=== PATIENT | female | born 2000 | race African-American/Black ===

== ENCOUNTER 2023-10-31 22:16 | Inpatient (IN) | payer OTHER, SELFPAY ==
[2023-10-31 16:20] VITALS: BP 148/85; BMI 17.4
[2023-10-31 17:00] VITALS: BP 135/80
[2023-10-31 17:10] LABS: Urine Albumin Trace (Neg - Trace); Urine Bilirubin Negative (Negative); Urine Character Clear (Clear); Urine Color Yellow; Urine Glucose Negative (Negative); Urine Ketone Negative (Negative); Urine Leukocyte Negative (Negative); Urine Nitrite Positive (Negative); Urine Occult Blood Negative (Negative); Urine Specific Gravity 1.015 (<1.030); Urine Urobilinogen Negative (Neg - 1+)
[2023-10-31 17:12] LABS: COVID-19 Antigen Negative (Negative)
[2023-10-31 17:14] LABS: Chloride 105 mmol/L (98-107); Potassium 3.6 mmol/L (3.5-5.1); Sodium 139 mmol/L (135-145)
[2023-10-31 17:15] LABS: ALT (SGPT) 12 U/L (0-35); AST (SGOT) 17 U/L (14-36); Acetaminophen < 10 ug/ml (10-30); Albumin 4.5 g/dl (3.5-5.0); Alkaline Phosphatase 50 U/L (38-126); Blood Urea Nitrogen 12 mg/dl (7-17); Calcium 9.1 mg/dl (8.4-10.2); Carbon Dioxide 14 mmol/L (22-30); Creatine Phosphokinase 27 U/L (30-135); Estimated Creatinine Clearance 93 ml/min; Glucose 147 mg/dl (70-99); Lipase 61 U/L (23-300); Magnesium 1.5 mg/dl (1.6-2.3); Total Bilirubin 0.7 mg/dl (0.2-1.3); Total Protein 7.6 g/dl (6.3-8.2); eGFR > 60.00
[2023-10-31 17:17] LABS: Alcohol None Detected
[2023-10-31 17:20] LABS: Amphetamines Negative (Negative); Barbiturates Negative (Negative); Benzodiazepines Negative (Negative); Buprenorphine Negative (Negative); Cocaine Negative (Negative); Marijuana Negative (Negative); Methadone Negative (Negative); Methamphetamines Negative (Negative); Opiates Negative (Negative); Phencyclidine Negative (Negative); Tricyclic Antidepressants Negative (Negative)
[2023-10-31 17:22] LABS: HCG, Serum Qualitative Screen Negative
--- NOTE | 2023-10-31 17:31 | ED.GENMED ---
History of Present Illness
General
Chief Complaint: Change in Mental Status
Source: patient, family and ambulance crew
Exam Limitations: clinical condition
Time Seen by Provider: 10/31/23 16:32
Nursing documentation reviewed up to this point in time: agreed with
History of Present Illness
History of Present Illness:
22-year-old female with no apparent past medical history presents to the emergency room via EMS from home where she lives with her mom and brother; initially unaccompanied and later joined by her brother who helps provide some collateral history.
She presents to the ER today for evaluation of change in mental status. Patient is limited as a historian and is clearly confused�she is tangential, not appropriately answering questions. Her brother says that she was in her normal state of health
yesterday. This morning he says that he heard her moving about the house and everything seemed to be normal but he did not actually see her until the afternoon when he returned from picking his mother up from a dialysis center. They found her
sitting on the couch acutely confused. He says that she was pretending to talk on the phone, not answering questions appropriately, seemed anxious and jittery. Per EMS on their arrival patient very confused, denied any drug use, had a red bull can
near her but no other drugs or alcohol in the area. She was found to be very tachycardic and was given IV fluids on the way to the hospital.
Review of Systems
Review of Systems
Unable to obtain full review of systems at this time due to: other (Confusion)
All Other Systems: Not applicable
Phy Exam
Physical Exam
Physical Exam:
General: Awake, alert, oriented to person and place; anxious and confused�speaking very softly, not answering questions appropriately and tangential when she does answer questions
Head: Normocephalic, atraumatic
Eyes: Conjunctiva normal, EOMI, pupils dilated and briskly reactive to light bilaterally
Throat: Airway intact, mucous membranes very dry, tongue atraumatic
Neck: Trachea midline, supple without meningismus
Lungs: Clear to auscultation bilaterally, no wheezing, rales, rhonchi
Heart: Tachycardia with regular rhythm, no murmurs, gallops, or rubs
Abd: Soft, non distended, nontender
Neuro: Cranial nerves grossly intact, speech fluid but soft and confused�no dysarthria or aphasia; motor and sensory function intact in all extremities
Skin: no rash or signs of trauma
Extremities: No edema in extremities, equal pulses in all extremities
Scores
Heart Failure Risk
Heart Failure Risk Score: Not Applicable
Heart Score for Chest Pain Patients
STEMI patient?: Not applicable
Withdrawal Assessment of Alcohol
Withdrawal Assessment Completed?: Not applicable
Course
Orders/Labs/Results
Orders:
Orders
10/31/23 16:25
Electrocardiogram (*1) Urgent
Reason for Study: Tachycardia
10/31/23 16:26
EKG- Treatment ONCE
10/31/23 16:30
Acetaminophen Urgent
Alcohol Urgent
CPK [Creatine Phosphokinase] Urgent
Complete Blood Count/With Diff Urgent
Comprehensive Metabolic Panel Urgent
HCG, Serum Qualitative Screen Urgent
Lipase Urgent
Magnesium Urgent
TSH Reflex To Free T4 Urgent
Comment: ADD ON
10/31/23 16:32
Test Result ONCE
10/31/23 16:33
CT Head W/o Iv Contrast Urgent
Comment:
Reason For Exam: confused
10/31/23 16:43
0.9% Sodium Chloride 1000 ml [Nss] 1,000 ml IV BOLUS
10/31/23 16:48
COVID-19 Antigen Urgent
Source: Nasal Swab
Drug Screen, Urine [Urine Drug Abuse Screen] Urgent
Date Specimen was Collected: 10/31/23
Time Specimen was Collected: 16:45
Urinalysis Reflex To Culture Urgent
Date Specimen was Collected: 10/31/23
Time Specimen was Collected: 16:45
Urine Microscopic Reflex Cult Urgent
Urine Culture Urgent
ANNIKA Source: U
Specimen Description:
Date Specimen was Collected: 10/31/23
Time Specimen was Collected: 16:45
10/31/23 16:49
Add On- LAB Urgent
Tests Added?: tsh reflex
10/31/23 17:30
Ethylene Glycol [S] Urgent
Methyl Alcohol (Methanol) [S] Urgent
Salicylate Urgent
10/31/23 17:54
B12 [Vitamin B12] Urgent
Ferritin Urgent
Folate Urgent
Iron Urgent
Lactate Level [Lactic Acid] Urgent
Total Iron Binding Urgent
Venous Blood Gas Urgent
%Oxygen/Room Air: 95
10/31/23 19:01
Midazolam HCl [Versed] 1 mg IV NOW STA
10/31/23 19:40
CSF Cell Count Routine
Date Specimen was Collected: 10/31/23
Time Specimen was Collected: 19:22
CSF Cell Count Urgent
Date Specimen was Collected: 10/31/23
Time Specimen was Collected: 19:22
CSF Tube Number: 1
Comment: Tube #1
Spinal Fluid Glucose Urgent
Date Specimen was Collected: 10/31/23
Time Specimen was Collected: 19:22
Spinal Fluid Protein Urgent
Date Specimen was Collected: 10/31/23
Time Specimen was Collected: 19:22
CSF Culture with Gram Stain Urgent
ANNIKA Source: [facility]
Specimen Description:
Date Specimen was Collected: 10/31/23
Time Specimen was Collected: 19:22
Meningitis Panel, CSF by PCR Urgent
ANNIKA Source: [facility]
Specimen Description:
10/31/23 20:24
Basic Metabolic Panel Urgent
Lactate Level [Lactic Acid] Urgent
10/31/23 20:53
NEUROLOGY CONSULT Urgent
Consulting Provider: Trevor Tiwari
Was physician already notified: Yes
Abnormal Lab Results
10/31/23 10/31/23 10/31/23
16:30 16:48 17:30
Hgb 8.1 L g/dL
(12.0-16.0)
Hct 28.0 L %
(37.0-47.0)
MCV 61.9 L fL
(81.0-99.0)
MCH 17.9 L pg
(27.0-31.0)
MCHC 28.9 L g/dL
(33.0-37.0)
RDW 17.4 H %
(11.5-14.5)
Plt Count 460 H 10^3/uL
(130-400)
Absolute Neuts (auto) 6.7 H 10^3/uL
(1.4-6.5)
Absolute Lymphs (auto) 0.7 L 10^3/uL
(1.2-3.4)
Neutrophils % 84.4 H %
(42.2-75.2)
Lymphocytes % 8.9 L %
(20.5-51.1)
VBG pCO2
VBG pO2
VBG HCO3
Chloride
Carbon Dioxide 14 L* mmol/L
(22-30)
Creatinine
Glucose 147 H mg/dl
(70-99)
Lactic Acid
Magnesium 1.5 L mg/dl
(1.6-2.3)
Iron
% Saturation
Ferritin
Creatine Kinase 27 L U/L
(30-135)
Urine Nitrite (Reflex) Positive A
(Negative)
Urine Bacteria (Reflex) Many A
(Negative)
Salicylates < 1.0 L mg/dl
(2.0-20.0)
Acetaminophen < 10 L ug/ml
(10-30)
10/31/23 10/31/23
17:54 20:24
Hgb
Hct
MCV
MCH
MCHC
RDW
Plt Count
Absolute Neuts (auto)
Absolute Lymphs (auto)
Neutrophils %
Lymphocytes %
VBG pCO2 33 L mmHg
(35-48)
VBG pO2 126 H mmHg
(30-50)
VBG HCO3 18.2 L mmol/L
(22-27)
Chloride 109 H mmol/L
(98-107)
Carbon Dioxide 15 L mmol/L
(22-30)
Creatinine 0.5 L mg/dL
(0.6-1.0)
Glucose
Lactic Acid 2.2 H mmol/L
(0.7-2.0)
Magnesium
Iron 25 L ug/dl
(37-170)
% Saturation 6 L %
(20-50)
Ferritin 4.2 L ng/ml
(6.24-137)
Creatine Kinase
Urine Nitrite (Reflex)
Urine Bacteria (Reflex)
Salicylates
Acetaminophen
10/31/23 16:30
10/31/23 20:24
Vital Signs
Initial and Last Documented VS:
Initial Vital Signs
Temp Pulse Resp BP Pulse Ox
36.9 C 153 27 148/85 98
10/31/23 16:20 10/31/23 16:20 10/31/23 16:20 10/31/23 16:20 10/31/23 16:20
Last Documented Vital Signs
Temp Pulse Resp BP Pulse Ox
36.9 C 117 15 138/88 100
10/31/23 16:20 10/31/23 20:45 10/31/23 20:45 10/31/23 20:36 10/31/23 20:36
Procedures
Lumbar Puncture
Indication for procedure:: encephalopathy
Procedure completed by: Carroll Garcia MD
Consent form signed: Yes
Anesthesia/sedation: 1% Lidocaine
Preparation: cleaned with Betadine
Position: decubitis
Needle Size: 20 gauge
Needle Type: Lumbar Needle
Number of attempts: 1
Dressing applied to puncture site: bandaid
Complications: none
MDM/Problems Addressed
Differential Diagnosis Includes:
Drug/alcohol intoxication, traumatic head injury/intracranial hemorrhage, meningitis/encephalitis, seizure with postictal period, psychosis
MDM/Problems Addressed:
22-year-old female presents from home for evaluation of change in mental status�found acutely confused this afternoon; last visibly seen normal yesterday although seem to be moving about the house relatively normally according to her brother as
recently as this morning. No reported or apparent drug or alcohol use. No apparent trauma. Tachycardic and tachypneic otherwise normal vitals. Physical exam as above. Accu-Chek normal. Place an IV check labs including a CBC and a CMP, tox
screen, hCG, thyroid studies, urinalysis. EKG shows sinus tachycardia. Will check CT head. IV fluids. Will reassess after the above.
Initial labs reviewed: CBC shows anemia of unclear chronicity�microcytic suggest iron deficiency. CMP shows anion gap metabolic acidosis with a bicarb of 14 anion gap of 20, glucose 147. Added lactate, toxic alcohols, salicylate levels, VBG. Her
alcohol level is negative, UDS is negative. CT head is pending. Continue to monitor.
CT head negative. Patient's VBG shows normal pH. Lactate was slightly elevated 2.2. Clinical reassessment patient still confused family says not at her baseline�she still is giving bizarre responses to questions. Will proceed with lumbar
puncture to rule out [employer] infection. Consented via telephone with patient's mother.
LP performed as documented procedure note. Fluid clear appearing CSF studies sent. Continue to monitor.
CSF cell counts returned, no elevation in WBCs, clear and colorless. Nothing to suggest meningitis although cultures pending. Her urinalysis did have some bacteria but no significant pyuria, multiple squamous cells which suggest contamination; she
has no fever or leukocytosis and denies urinary symptoms, low suspicion that UTI accounts for her presentation. Her mental status has improved slightly but she is still not consistently answering questions appropriately, cannot recall the events of
the day at all. Family agrees that she is still not at her baseline. Case discussed with neurology for consultation. Will admit for continued monitoring and workup. Possibly seizure with prolonged postictal period considering metabolic acidosis
and elevated lactate on arrival. Case discussed with hospitalist for admission.
*Radiology
Radiology exam reviewed: radiology read reviewed
*Pulse Oximetry
Patient hypoxic: no
*EKG
Interpreted by ED Provider?: Yes
Heart Rate: 149
Rate: tachycardiac
Rhythm: sinus tachycardia
[place]: normal axis
Interval: normal interval
QRS Pattern: normal QRS
Ischemia: non-specific ST changes
*Critical Care Note
Total Time (30-74mins, 75-104mins- exclusive of procedures): Not Applicable
Data Reviewed
Source: patient, family and ambulance crew
Patient Management
Discussion with other providers: Hospitalist (Discussed with hospitalist) and [employer] Access Database Developer (Discussed with neurology)
Escalation/DeEscalation of care consider admission/obs:
Admission indicated
ED Attending Note
-
Portions of this chart may have been created with voice recognition software.� Occasional wrong word or��sound alike� substitutions may have occurred due to the inherent limitations of voice recognition software.
Discharge Plan
Departure
Patient Disposition: Admit
Date of Disposition: 10/31/23
Time of Disposition: 20:58
Admit to doctor: Bunny
Presentation/result/management discussed w/ accepting MD/DO: Hospitalist
Discharge Problem:
Encephalopathy
Referrals:
Bay Resendiz DO [Family Provider] -
Interventions
Interventions:
*General Assessment Last Done: 10/31/23 16:34
*Neglect/Abuse Screening Last Done: 10/31/23 16:34
*ED COVID-19 Vaccine History Last Done: 10/31/23 16:34
ED- Pulmonary Assessment Last Done: 10/31/23 16:57
ED-Psychological Assessment Last Done: 10/31/23 16:57
ED- Neurological Assessment Last Done: 10/31/23 16:57
ED- Cardiac Assessment Last Done: 10/31/23 16:57
Discharge Date and Time
Print Language: WOLOF
[2023-10-31 17:33] LABS: Urine Squamous Cell 16-20 /LPF (Few)
[2023-10-31 17:34] LABS: Urine Bacteria Many (Negative); Urine Red Blood Cell 0-2 /HPF (0-2)
[2023-10-31 17:40] LABS: Hemoglobin 8.1 g/dL (12.0-16.0); Mean Corp Hgb Conc. 28.9 g/dL (33.0-37.0); Mean Corpuscular Hgb 17.9 pg (27.0-31.0); Mean Corpuscular Volume 61.9 fL (81.0-99.0); Platelet Count 460 10^3/uL (130-400); Red Blood Cell Count 4.52 10^6/uL (4.20-5.40); Red Cell Dist. Width 17.4 % (11.5-14.5); White Blood Cell Count 7.9 10^3/uL (4.8-10.8)
[2023-10-31 17:51] VITALS: BP 141/90
[2023-10-31 17:56] LABS: TSH Reflex To Free T4 1.45 uIU/ml (0.47-4.68)
[2023-10-31] MEDS: NSS 1000 IV (17:56)
[2023-10-31 18:00] VITALS: BP 136/97
[2023-10-31 18:02] LABS: Salicylate < 1.0 mg/dl (2.0-20.0)
[2023-10-31 18:11] LABS: Venous Blood Gas B.E. -6.7 mmol/L (-4 to +4); Venous Blood Gas HCO3 18.2 mmol/L (22-27); Venous Blood Gas O2 Sat % 99.7 %; Venous Blood Gas pCO2 33 mmHg (35-48); Venous Blood Gas pH 7.35 (7.32-7.43); Venous Blood Gas pO2 126 mmHg (30-50)
[2023-10-31 18:19] LABS: Lactic Acid 2.2 mmol/L (0.7-2.0)
[2023-10-31 18:20] LABS: Iron 25 ug/dl (37-170)
[2023-10-31 18:29] LABS: Percent Saturation 6 % (20-50); Total Iron Binding Capacity 412 ug/dl (265-497)
[2023-10-31 18:57] LABS: % Basophils 0.8 % (0-2); % Immature Granulocytes 0.3 % (0-0.5); % Lymphocytes 8.9 % (20.5-51.1); % Monocytes 5.6 % (1.7-9.3); % Neutrophils 84.4 % (42.2-75.2); Absolute Basophils 0.1 10^3/uL (0-0.2); Absolute Lymphocytes 0.7 10^3/uL (1.2-3.4); Absolute Monocytes 0.4 10^3/uL (0.1-0.6); Absolute Neutrophils 6.7 10^3/uL (1.4-6.5); Nucleated Red Blood Cells % 0 %
[2023-10-31 19:00] LABS: Anisocytosis 1+; Hypochromasia 1+; Macrocytosis 1+; Normal RBC Morphology No; Ovalocytes 1+; Spherocytes 2+; Stomatocytes 1+; Tear Drop Red Blood Cells 1+
[2023-10-31 19:03] LABS: Ferritin 4.2 ng/ml (6.24-137)
[2023-10-31] MEDS: VERSED 1 MG IV (19:06)
[2023-10-31 19:34] LABS: Folate 14.9 ng/ml (2.76-20); Vitamin B12 854 pg/ml (239-931)
[2023-10-31 20:12] LABS: Spinal Fluid Glucose 60 mg/dl (40-70); Spinal Fluid Protein 30 mg/dl (12-60)
[2023-10-31 20:36] VITALS: BP 138/88
[2023-10-31 20:39] LABS: CSF Clarity Clear; CSF Color Colorless; CSF Tube # 1; CSF Tube # 4; Red Cell Count/CSF 0 mm^3; White Cell Count/CSF 1 mm^3 (0-5); White Cell Count/CSF 2 mm^3 (0-5)
[2023-10-31 20:48] LABS: Lactic Acid 1.7 mmol/L (0.7-2.0)
[2023-10-31 20:49] LABS: Blood Urea Nitrogen 7 mg/dl (7-17); Calcium 8.4 mg/dl (8.4-10.2); Carbon Dioxide 15 mmol/L (22-30); Chloride 109 mmol/L (98-107); Estimated Creatinine Clearance 109 ml/min; Glucose 73 mg/dl (70-99); Sodium 139 mmol/L (135-145); eGFR > 60.00
--- NOTE | 2023-10-31 21:37 | HPS.HSE ---
Addendum entered and electronically signed by Luc Hollis DO 10/31/23 22:51:
Patient seen and examined independently. Agree with findings and plan as set forth by Tamar Ny PA-C.
Patient is a 22y F with PMH significant for iron deficiency anemia who presents to ED for evaluation of change in mental status. Patient found by her family sitting at home and very confused. She was brought to the ED for evaluation where she
was somewhat alert, but remained confused and sluggish. Patient states that she recalls 'coming to' here in the ED. She remembers getting a slushie from [employer] and going home - but does not recall what happened after that. Patient has no prior
history of seizures, etc.
Currently she feels tired but has no other complaints including headache, vision changes, etc.
Ass:
New Onset Seizure Activity
Lactic Acidosis secondary to the above
Iron Deficiency Anemia / Menorrhagia
Plan:
Admit for further evaluation and treatment.
Monitor for any recurrent seizure activity.
Ativan PRN.
Neurology evaluation.
MRI, EEG, etc in the AM.
IV iron replacement.
Recommend further OP follow-up with [facility] re: menstrual losses and anemia.
Original Note:
Family Physician
-
Family Physician: Bay Resendiz DO
Chief Complaint
-
Confusion
History of Present Illness
Patient is a 22 y/o female past medical history of anemia who presents with acute change in mental status. Patient was found by her family sitting on the couch acutely confused. She was not answering questions appropriately initially upon arrival.
Upon my evaluation patient has improved significantly. She is able to tell me she remembers hearing her family come home, but then nothing else until being in the emergency department. She denies any drug or alcohol use. She denies any prior
history of seizure or similar episodes in the past.
Work-up in the emergency department revealed metabolic acidosis with elevated lactic acid level.
Medical History
Past Medical History
Past Medical History: Reports Other
Additional Past Medical History:
Iron Deficiency Anemia
Past Surgical History: Reports None
Social History
Tobacco: Non-smoker
Alcohol: Occasional (Last drink was in June)
Family History
Family History: Other (Mother: ESRD)
Allergies / Home Medications
Allergies reflects when Allergies were last updated in [facility].
Home Medications with original date entered in [facility]
Allergy/Medication List:
Allergies
Allergy/AdvReac Type Severity Reaction Status Date / Time
dextromethorphan Allergy Hives Verified 10/31/23 16:51
[From [employer]]
Home Medications
therapeutic multivitamin 1 tab PO DAILY 10/31/23
Review of Systems
-
A 12 point ROS was completed and negative except as noted: Yes
Constitutional: Denies Fever or Chills
Respiratory: Denies Cough or Trouble Breathing
Cardiac: Denies Chest Pain or Palpitations
: Reports Other (Heavy menses with occasional clots)
Neurological: Reports Dizzy
Physical Exam
Vital Signs
Vital Signs
Temp Pulse Resp BP Pulse Ox
98.4 F 112 21 138/88 100
10/31/23 16:20 10/31/23 21:00 10/31/23 21:00 10/31/23 20:36 10/31/23 21:30
Physical Exam
General: Comfortable and Conversant
HEENT: Anicteric and Moist mucous membranes
Respiratory: Clear and Non Labored Respirations
Cardiac: S1/S2, Regular Rhythm and Tachycardia
GI: Soft and Non Tender
Rectal: Deferred by Provider
Musculoskeletal: No Clubbing, No Cyanosis and No Edema
Skin: Warm and Dry
Neuro: Awake, Alert, AO x 3 and Nonfocal/grossly intact
Psych: Calm
Laboratory Results
-
10/31/23 16:30
10/31/23 20:24
Laboratory Results
Lactic Acid 1.7 mmol/L (0.7-2.0) 10/31/23 20:24
Total Bilirubin 0.7 mg/dl (0.2-1.3) 10/31/23 16:30
AST 17 U/L (14-36) 10/31/23 16:30
ALT 12 U/L (0-35) 10/31/23 16:30
Alkaline Phosphatase 50 U/L (38-126) 10/31/23 16:30
Lipase 61 U/L (23-300) 10/31/23 16:30
Data Reviewed
-
Lab Data: Labs Reviewed by me
Impression/Plan
-
Acute Change in Mental Status, suspect New-Onset Seizure with Prolonged Post-Ictal Phase
-Consult Neurology
-Seizure precautions
-Neuro-checks
Severe Iron Deficiency Anemia, likely menstrual losses
-Give IV iron during hospitalization
-Encouraged patient to follow-up with [facility] post-discharge
DVT proph: SCDs
Code Status: Full Code
[2023-10-31 23:17] VITALS: BP 126/83; BMI 16.9
--- NOTE | 2023-10-31 23:17 | PTCARENOTE ---
Pt arrived from ED via stretcher and ambulated to bed. Pt is AAOx3, VSS, and w/o complaints of pain. Pt is resting comfortably w/ call romo within reach.
[2023-11-01 03:39] VITALS: BP 103/66
[2023-11-01 05:52] LABS: Hemoglobin 7.6 g/dL (12.0-16.0); Mean Corp Hgb Conc. 28.1 g/dL (33.0-37.0); Mean Corpuscular Hgb 17.4 pg (27.0-31.0); Mean Corpuscular Volume 61.9 fL (81.0-99.0); Mean Platelet Volume 9.7 fL (7.4-10.4); Platelet Count 417 10^3/uL (130-400); Red Blood Cell Count 4.36 10^6/uL (4.20-5.40); Red Cell Dist. Width 17.6 % (11.5-14.5); White Blood Cell Count 7.2 10^3/uL (4.8-10.8)
[2023-11-01 05:59] LABS: Blood Urea Nitrogen 6 mg/dl (7-17); Calcium 9.6 mg/dl (8.4-10.2); Carbon Dioxide 17 mmol/L (22-30); Chloride 108 mmol/L (98-107); Estimated Creatinine Clearance 90 ml/min; Glucose 70 mg/dl (70-99); Potassium 3.8 mmol/L (3.5-5.1); Sodium 141 mmol/L (135-145); eGFR > 60.00
[2023-11-01 07:00] VITALS: BP 121/74
--- NOTE | 2023-11-01 09:02 | W.PN.HOSP.TC ---
Addendum entered and electronically signed by Phillip Pace MD 11/01/23 13:43:
#UA
Questionable UA - Ucx pending
Start Ceftriaxone
Original Note:
Today's Communication/Plan
-
see PN
Assessment / Plan
Assessment / Plan
22yo F with PMHx of anxiety, MANUEL 2/2 heavy periods brought to the hospital after her family found her tremulous, confused, but wide awake in her room. PAtient has no recollection of events. LP in ED with benign cell count and negative
meningitis/encephalitis panel. Patient started to slowly improve and back tpo baseline withing 24h. As per mother she has similar episode at the age of 15, that was contributed to be due to her anemia and possible anxiety
Also reported absent periods for 3 months and was found severely anemic with tachycardia
A/P:
#Episode of confusion, possible seizures
seizure precautions
Neurology consult
LP neg for infection on PCR, Cx pending
Head CT without abnormalities
MRI brain pending
Ativan PRN
UDS neg, denied alcohol or illicit drugs
#Sinus tachy
up to 140, concerned for dehydration and anemia
follow on telemetry
correct underlying abnormality
#Thrombocytosis
could be 2/2 recent acute URI that patient had over past week vs hemoconcentration 2/2 dehydration as justiffied by dry mouth
#MANUEL
2/2 heavy mences. As per family - patient was not taking her iron pills
FOllow Hgb, transfuse to keep >7.0
Outpatient hematology advised
IV iron
#Amenorrhea
Concerned that could be 2/2 poor oral intake as patient BMI 16.9
bHCG neg
Outpatient [facility] advised
Avise to increase oral intake
TSH WNL
DVT ppx SCDs
Full code
I have spent at least 60min reviewing chart, test results communication with consultants and direct patient care
Anticipated Discharge: 24 - 48 hours
Subjective/Interval History
-
Date of Service: November 01, 2023
Objective Data
-
Labs:
Laboratory Results
11/01/23 11/01/23
04:39 16:00
WBC 7.2 Pending
Hgb 7.6 L Pending
Hct 27.0 L Pending
Plt Count 417 H Pending
Sodium 141
Potassium 3.8
Chloride 108 H
Carbon Dioxide 17 L
BUN 6 L
Creatinine 0.7
Glucose 70
Calcium 9.6
Vital Signs:
Vital Signs
Temp Pulse Resp BP Pulse Ox
98.9 F 121 16 121/74 99
11/01/23 07:00 11/01/23 07:00 11/01/23 07:00 11/01/23 07:00 11/01/23 07:00
I&O
10/31/23 11/01/23 11/02/23
06:59 06:59 06:59
Intake Total 480 / 480
Balance 480 / 480
Review of Systems
-
History Source: Patient
All other systems: Reviewed and negative
Physical Exam
-
General: No Apparent Distress
HEENT: Negative Moist Mucous Membranes
Respiratory: Clear to Auscultation
Cardiac: Regular Rhythm and Tachycardic
GI: Soft, Nontender and Nondistended
Genito-urinary: No Costovertebral Tender
Musculoskeletal: No Clubbing, No Cyanosis and No Edema
Skin: Warm
Neuro: Awake, Alert, Oriented, AO x 3 and No Motor Deficits
Psych: Calm
[2023-11-01] MEDS: LR 1000 IV (09:05)
[2023-11-01 11:03] LABS: Magnesium 1.9 mg/dl (1.6-2.3)
--- NOTE | 2023-11-01 11:24 | CM ---
Met Amanda in room. 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 She lives with her mother and brother in apartment. No steps to enter, elevator access. She does not use any DME. No history of
VNA or SNF.
Pharmacy: [facility]
PCP: Yanni Resendiz
PLAN: home no needs.
--- NOTE | 2023-11-01 11:34 | CON.NEURO4 ---
Consultation - Neurology 4
-
CONSULTING PHYSICIAN:
REFERRING PHYSICIAN:
DICTATED BY:
DATE/TIME OF REQUEST:
DATE/TIME OF CONSULTATION:
Reason for Consultation: Altered mental state
History of Present Illness:
This is a 22 year old right) handed female) who has presented to the hospital with (chief complaint) of altered mental state. She gives a history of anemia, anxiety disorder who had been in her usual state of health till last night. She she was
admitted to the hospital for evaluation of change in mental status. Patient is limited as a historian and is clearly confused�she is tangential, not appropriately answering questions. Her brother says that she was in her normal state of health
yesterday. This morning he says that he heard her moving about the house and everything seemed to be normal but he did not actually see her until the afternoon when he returned from picking his mother up from a dialysis center. They found her
sitting on the couch confused. He says that she was pretending to talk on the phone, but not answering questions appropriately, seemed anxious and jittery. Per EMS on their arrival patient very confused, denied any drug use, had a Red Bull can
near her but no other drugs or alcohol in the area. She was found to be very tachycardic and was given IV fluids on the way to the hospital.
She was brought by EMS from home where she lives with her mom and brother; initially unaccompanied and later joined by her brother who helps provide some collateral history.
She is a college student at [employer] and has been home since July
Past Medical History: Anxiety d/o
Surgical History: None
Family History: Noncontributory
Social History: College student at [employer]
Allergies: Dextromethorphan
Home Medications: Multivitamins
Review of Symptoms:
Patient denies any fever, headache, chest pain, shortness of breath, GI or symptoms.
�Per the HPI.�All systems are reviewed negative except above.
�- Remove any of these problems that patient may have complained about in the HPI.
�- If patient is unresponsive, intubated or demented, say 'Per the HPI. I am unable to obtain a complete review of systems�because of patient's inability to provide history.'
Vital Signs:
The patient has a .Temp 37.2 C [id number] Resp 16 BP 121/74 Pulse Ox 99
Physical Exam:
The patient is afebrile, heart sounds S1 and S2 are regular tachycardic, and chest is clear to auscultation bilaterally.
- If not clear, describe.
Neurologic Examination:
The patient is awake, alert and oriented x 3. She is able to follow commands and answer questions appropriately. There is no aphasia or dysarthria.
On cranial nerve assessment, pupils are 3 mm bilateral, round and reactive to light and accommodation. Visual bhardwaj are full. Extraocular movements are intact. Facial sensations are intact and bilaterally symmetrical, there is no facial asymmetry.
Hearing is intact bilaterally to normal conversation volume. Tongue palate and uvula are midline. Sternocleidomastoid strengths are full bilaterally. Motor strengths are 5/5 bilateral upper and lower extremities on medical research [place] scale.
There is no drift or involuntary movement noted. Deep tendon reflexes are 2+ bilateral upper and lower extremities and Babinski is absent bilaterally. Sensations of pain, touch, temperature and vibration are intact and bilaterally symmetrical. There
was no extinction noted on double simultaneous stimulation. Coordination is intact by finger to nose bilaterally. Romberg is negative gait within normal limits
Lab Results: See addendum
Neuro Imaging: CT /MRI head within normal limits
Impression:
(Mrs.) JOAN HUTCHISON is a 22 year old F who has presented to the hospital with (symptoms/chief complaint). of recurrent episodes of unresponsiveness
Differentials for the patient's presentation include:
1. Complex partial seizures
Recommendations:
1. Lamictal 25 mg weekly titration to 100 mg. She is aware of the risk of rash and to stop the medication if she sees a rash
2. EEG
3. MRI head
4. Avoid all stimulants especially caffeinated drinks in the future(patient is aware that this may cause tachycardia and cardiac arrest, leading to )
5. Do not drive
Discussed patient care with: Family and hospitalist
Allergies
-
Allergies
Allergy/AdvReac Type Severity Reaction Status Date / Time
dextromethorphan Allergy Hives Verified 10/31/23 16:51
[From Dels[facility]]
Vital Signs and Labs
-
Vital Signs and Labs:
Vital Signs
Temp Pulse Resp BP Pulse Ox
37.2 C 121 16 121/74 99
11/01/23 07:00 11/01/23 07:00 11/01/23 07:00 11/01/23 07:00 11/01/23 07:00
Lab Results
11/01/23 04:39
Sodium 141 mmol/L (135-145) 11/01/23 04:39
Potassium 3.8 mmol/L (3.5-5.1) 11/01/23 04:39
BUN 6 mg/dl (7-17) L 11/01/23 04:39
Glucose 70 mg/dl (70-99) 11/01/23 04:39
Calcium 9.6 mg/dl (8.4-10.2) 11/01/23 04:39
Vitamin B12 854 pg/ml (239-931) 10/31/23 17:54
Ur Buprenorphine Negative (Negative) 10/31/23 16:48
Medications
-
Active Medications
Generic Name Dose Route Start Last Admin
Trade Name Freq PRN Reason Stop Dose Admin
Acetaminophen 650 mg 10/31/23 22:51
Acetaminophen 325 Mg Tablet PO 11/28/23 22:50
Q4HPRN PRN
mild pain/ fever>100.5F
Ferric Sodium Gluconate 110 mls @ 110 mls/hr 11/01/23 14:00
Complex 125 mg/ Sodium IV 11/05/23 14:59
Chloride DAILY@1400 YANE
Lactated Ringer's 1,000 mls @ 150 mls/hr 11/01/23 09:00 11/01/23 09:05
Lr IV 1,000 mls
.Q6H40M YANE Administration
Lorazepam 1 mg 10/31/23 22:51
Lorazepam 2 Mg/Ml Vial IV
Q1HPRN PRN
seizure
Sodium Chloride 0 flush 10/31/23 23:00
Sodium Chloride 0.9% (Flush) Syringe IV 11/28/23 22:59
PER PROTOCOL YANE
Sodium Chloride 0.5 ml 10/31/23 23:03
Nss (Pf) 10 Ml Vial For Ativan 1 Mg Dose IV 11/28/23 23:02
Q1HPRN PRN
IV LORAZEPAM DILUTION
Home Medications
�Medication �Instructions �Recorded
therapeutic multivitamin 1 tab PO DAILY Supplement 10/31/23
[2023-11-01 11:55] VITALS: BP 116/78
[2023-11-01 11:59] VITALS: BMI 16.9
[2023-11-01] MEDS: FERRLECIT 110 MG IV (13:02)
[2023-11-01] MEDS: ROCEPHIN 1000 MG IV (14:23)
[2023-11-01] MEDS: NSS 1000 IV ×2 (14:23→23:17)
[2023-11-01] MEDS: STERILE WATER FOR INJECTION 10 ML IV (14:24)
[2023-11-01] MEDS: LAMICTAL 25 MG PO (14:37)
[2023-11-01 15:00] VITALS: BP 119/70
[2023-11-01 15:53] LABS: Hematocrit 27.4 % (37.0-47.0); Mean Corp Hgb Conc. 29.2 g/dL (33.0-37.0); Mean Corpuscular Hgb 17.9 pg (27.0-31.0); Mean Corpuscular Volume 61.2 fL (81.0-99.0); Red Blood Cell Count 4.48 10^6/uL (4.20-5.40); Red Cell Dist. Width 17.8 % (11.5-14.5); White Blood Cell Count 6.7 10^3/uL (4.8-10.8)
[2023-11-01 16:22] LABS: % Basophils 0.9 % (0-2); % Eosinophils 1.2 % (0-6); % Immature Granulocytes 0.6 % (0-0.5); % Lymphocytes 23.7 % (20.5-51.1); % Monocytes 7.6 % (1.7-9.3); Absolute Basophils 0.1 10^3/uL (0-0.2); Absolute Eosinophils 0.1 10^3/uL (0-0.7); Absolute Lymphocytes 1.6 10^3/uL (1.2-3.4); Absolute Monocytes 0.5 10^3/uL (0.1-0.6); Absolute Neutrophils 4.4 10^3/uL (1.4-6.5); Nucleated Red Blood Cells % 0 %
[2023-11-01 19:55] VITALS: BP 104/66
[2023-11-01 23:53] VITALS: BP 96/68
[2023-11-02] VITALS (7 sets, daily range): BP systolic 101–114; BP diastolic 64–76; BMI 17.1
[2023-11-02] MEDS: NSS 1000 IV ×3 (06:26→18:07)
[2023-11-02 07:07] LABS: % Eosinophils 3.2 % (0-6); % Immature Granulocytes 0.4 % (0-0.5); % Lymphocytes 39.7 % (20.5-51.1); % Monocytes 10.1 % (1.7-9.3); % Neutrophils 45.6 % (42.2-75.2); Absolute Basophils 0.1 10^3/uL (0-0.2); Absolute Eosinophils 0.2 10^3/uL (0-0.7); Absolute Lymphocytes 2.1 10^3/uL (1.2-3.4); Absolute Monocytes 0.5 10^3/uL (0.1-0.6); Absolute Neutrophils 2.4 10^3/uL (1.4-6.5); Hematocrit 26.5 % (37.0-47.0); Hemoglobin 7.4 g/dL (12.0-16.0); Mean Corp Hgb Conc. 27.9 g/dL (33.0-37.0); Mean Corpuscular Hgb 17.7 pg (27.0-31.0); Mean Corpuscular Volume 63.4 fL (81.0-99.0); Mean Platelet Volume 10.1 fL (7.4-10.4); Nucleated Red Blood Cells % 0 %; Platelet Count 439 10^3/uL (130-400); Red Blood Cell Count 4.18 10^6/uL (4.20-5.40); Red Cell Dist. Width 17.8 % (11.5-14.5); White Blood Cell Count 5.2 10^3/uL (4.8-10.8)
[2023-11-02 07:27] LABS: Blood Urea Nitrogen 5 mg/dl (7-17); Carbon Dioxide 19 mmol/L (22-30); Chloride 110 mmol/L (98-107); Estimated Creatinine Clearance 107 ml/min; Glucose 78 mg/dl (70-99); Potassium 3.8 mmol/L (3.5-5.1); Sodium 142 mmol/L (135-145); eGFR > 60.00
[2023-11-02] MEDS: LAMICTAL 25 MG PO (08:03)
--- NOTE | 2023-11-02 10:06 | W.PN.HOSP.TC ---
Addendum entered and electronically signed by Phillip Pace MD 11/02/23 10:10:
#UTI
pansensitive e.coli
reasonable to complete 7 days of cefuroxime
Original Note:
Today's Communication/Plan
-
Pending EEG suggested in neurologist note
Assessment / Plan
Assessment / Plan
22yo F with PMHx of anxiety, MANUEL 2/2 heavy periods brought to the hospital after her family found her tremulous, confused, but wide awake in her room. PAtient has no recollection of events. LP in ED with benign cell count and negative
meningitis/encephalitis panel. Patient started to slowly improve and back tpo baseline withing 24h. As per mother she has similar episode at the age of 15, that was contributed to be due to her anemia and possible anxiety
Also reported absent periods for 3 months and was found severely anemic with tachycardia
A/P:
#Episode of confusion, possible seizures
seizure precautions
Neurology consult: started lamictal, plan for weekly taper by 25mg until reached 100mg dose, outpatient follow up with neurology and patient aware to watch for rash and come to ED if any noted
LP neg for infection on PCR, Cx NTD
Head CT without abnormalities
MRI brain without abnormalities
Ativan PRN
UDS neg, denied alcohol or illicit drugs
#Sinus tachy - improving
up to 140, concerned for dehydration and anemia
follow on telemetry
correct underlying abnormality
#Thrombocytosis
could be 2/2 recent acute URI that patient had over past week vs hemoconcentration 2/2 dehydration as justified by dry mouth
#MANUEL
2/2 heavy periods. As per family - patient was not taking her iron pills
Follow Hgb, transfuse to keep >7.0
Outpatient hematology advised
IV iron
#Amenorrhea
Concerned that could be 2/2 poor oral intake as patient BMI 16.9
bHCG neg
Outpatient SOLVENT STATION ATTENDANT advised
Avise to increase oral intake
TSH WNL
DVT ppx SCDs
Full code
I have spent at least 36min reviewing chart, test results communication with consultants and direct patient care
Anticipated Discharge: Within 24 hours
Subjective/Interval History
-
Date of Service: November 02, 2023
Objective Data
-
Labs:
Laboratory Results
11/02/23
06:11
WBC 5.2
Hgb 7.4 L
Hct 26.5 L
Plt Count 439 H
Sodium 142
Potassium 3.8
Chloride 110 H
Carbon Dioxide 19 L
BUN 5 L
Creatinine 0.6
Glucose 78
Calcium 9.0
Vital Signs:
Vital Signs
Temp Pulse Resp BP Pulse Ox
97.6 F 96 14 103/69 100
11/02/23 07:00 11/02/23 07:00 11/02/23 07:00 11/02/23 07:00 11/02/23 07:00
I&O
11/01/23 11/02/23 11/03/23
06:59 06:59 06:59
Intake Total 480 / 480 2220 / 2220
Balance 480 / 480 2220 / 2220
Review of Systems
-
History Source: Patient
All other systems: Reviewed and negative
Physical Exam
-
General: No Apparent Distress
HEENT: Normocephalic
Respiratory: Clear to Auscultation
Cardiac: Regular Rhythm
Neuro: Awake, Alert, Oriented and AO x 3
--- NOTE | 2023-11-02 11:28 | CM ---
Patient talking to physician, CM will return to confirm discharge planning needs.
Plan; home with no needs at this time
[2023-11-02] MEDS: CEFTIN 500 MG PO ×2 (11:39→19:35)
[2023-11-02] MEDS: FERRLECIT 110 MG IV (13:20)
[2023-11-03] MEDS: NSS 1000 IV ×2 (00:25→07:16)
[2023-11-03 03:09] VITALS: BP 112/58
[2023-11-03 07:00] VITALS: BP 106/69
--- NOTE | 2023-11-03 07:39 | W.PN.NEURO.1 ---
Today's Communication / Plan
-
Check blood work, add evaluations for possible underlying autoimmune disorder
Check EEG as previously planned and, expand to greater than 1 hour study
Continue lamotrigine as previously planned with titration upwards to dosing of 100 mg twice a day
Neuro Assessment/Plan
Assessment
Abrupt onset of change in mental status in a patient with a prior history of anxiety. Patient was subsequently found to have significant anemia.
MRI of the brain with and without contrast and lumbar puncture were both unremarkable as well as a toxicology screen.
Although seizure is in the differential diagnosis for which lamotrigine was initiated, the fact that this was a recurrent episode since age 15 with similar symptoms still leaves possible toxic metabolic encephalopathy in part due to hypoperfusion
intracranially.
Plan
Check blood work, add evaluations for possible underlying autoimmune disorder
Check EEG as previously planned and, expand to greater than 1 hour study
Continue lamotrigine as previously planned with titration upwards to dosing of 100 mg twice a day
Will follow as outpatient.
Subjective/Objective
Subjective Data
Date of Service: November 03, 2023
Objective Data
Vital Signs
Temp Pulse Resp BP Pulse Ox
36.8 C 98 16 112/58 99
11/03/23 03:09 11/03/23 03:09 11/03/23 03:09 11/03/23 03:09 11/03/23 03:09
Lab Results
11/02/23 06:11
11/02/23 06:11
Sodium 142 mmol/L (135-145) 11/02/23 06:11
Potassium 3.8 mmol/L (3.5-5.1) 11/02/23 06:11
BUN 5 mg/dl (7-17) L 11/02/23 06:11
Glucose 78 mg/dl (70-99) 11/02/23 06:11
Calcium 9.0 mg/dl (8.4-10.2) 11/02/23 06:11
Vitamin B12 854 pg/ml (829-881) 10/31/23 17:54
Ur Buprenorphine Negative (Negative) 10/31/23 16:48
Patient Allergies
dextromethorphan [From Delsym] Allergy (Verified 10/31/23 16:51)
Hives
Data Reviewed
-
MRI Head: Report Reviewed
EEG: Pending
Labs: Report Reviewed
Reviewed with: Physician and Patient
Old Records: Summarized
[2023-11-03] MEDS: CEFTIN 500 MG PO ×2 (07:56→20:09)
[2023-11-03] MEDS: LAMICTAL 25 MG PO (07:56)
[2023-11-03 08:20] LABS: C-Reactive Protein < 5.00 mg/L (0.0-10.00)
[2023-11-03] MEDS: LR 1000 IV (09:23)
--- NOTE | 2023-11-03 11:49 | EEG.RPT ---
Electroencephalogram Report
Recording
Date of EE11/03/23
Type of EEG: Routine
Length of EEG recordin minutes
Done with Video Recording: Yes
Patient Status: Inpatient
Recording Conditions: Awake, Drowsy and Asleep
Hyperventilation Performed: Yes
Photic Stimulation Performed: Yes
Report
GREATER THAN 1 HOUR EEG INTERPRETATION:
Unremarkable EEG for age
CLINICAL CORRELATION:
A normal EEG does not rule out a diagnosis of epilepsy. If clinical suspicion for seizure persists, a prolonged recording may be warranted.
Clinical correlation is advised.
METHODS:
A 21 channel digitized electroencephalogram (EEG) was performed using the 10/20 international system of electrode placement and one-lead of ECG recorded. The [place] quantitative EEG system was utilized.
ELECTROENCEPHALOGRAPHER IMPRESSION(S):
Quality of study
Good
Background
There was an unremarkable anterior-posterior voltage gradient of alpha frequency.
With eye opening the background activity changed to a low voltage mixture of frequencies
There were no significant asymmetries of background activity noted.
Sleep
Drowsiness present
Stage 1 present
Stage 2 present
Hyperventilation
No activation
Photic Stimulation
Produced activation the record at some intermediate flash frequencies.
ECG
Normal sinus rhythm
[2023-11-03 12:00] VITALS: BP 105/73
--- NOTE | 2023-11-03 12:05 | PTCARENOTE ---
pt back from EEG. pt is in the room, denies any discomfort. call bel within the reach. plan of care ongoing.
--- NOTE | 2023-11-03 13:16 | W.PN.HOSP.TC ---
Today's Communication/Plan
-
EEG
IV Iron, hgb electrophoresis
Vasculitis workup
Antibiotics for UTI
Assessment / Plan
Assessment / Plan
22yo F with PMHx of anxiety, MANUEL 2/2 heavy periods brought to the hospital after her family found her tremulous, confused, but wide awake in her room. PAtient has no recollection of events. LP in ED with benign cell count and negative
meningitis/encephalitis panel. Patient started to slowly improve and back tpo baseline withing 24h. As per mother she has similar episode at the age of 15, that was contributed to be due to her anemia and possible anxiety
Also reported absent periods for 3 months and was found severely anemic with tachycardia
A/P:
#Episode of confusion, possible seizures
seizure precautions
Neurology consult: started lamictal, plan for weekly titration by 25mg until reached 100mg dose, outpatient follow up with neurology and patient aware to watch for rash and come to ED if any noted
LP neg for infection on PCR, Cx NTD
Head CT without abnormalities
MRI brain without abnormalities
Ativan PRN
UDS neg, denied alcohol or illicit drugs
-EEG today
-Vasculitis work up as per neuro
#Sinus tachy - improving
up to 140, concerned for dehydration and anemia
follow on telemetry
correct underlying abnormality
-improving
-IVF PRN
#UTI
-Ecolli
-cont abx - 5-7 days
#Thrombocytosis
could be 2/2 recent acute URI that patient had over past week vs hemoconcentration 2/2 dehydration v acute phase reactant
#MANUEL
2/2 heavy periods. As per family - patient was not taking her iron pills
Follow Hgb, transfuse to keep >7.0
Outpatient hematology advised
IV iron
-HgB electrophoresis
#Amenorrhea
Concerned that could be 2/2 poor oral intake as patient BMI 16.9
bHCG neg
Outpatient ARCHEOLOGIST CLASSICAL advised
Avise to increase oral intake
TSH WNL
DVT ppx SCDs
Full code
Anticipated Discharge: Within 24 hours
Subjective/Interval History
-
Date of Service: November 03, 2023
no acute events, going for EEG
Objective Data
-
Labs:
Laboratory Results
11/03/23
12:48
Sodium Pending
Potassium Pending
Chloride Pending
Carbon Dioxide Pending
BUN Pending
Creatinine Pending
Glucose Pending
Calcium Pending
Vital Signs:
Vital Signs
Temp Pulse Resp BP Pulse Ox
98.2 F 104 12 105/73 100
11/03/23 12:00 11/03/23 12:00 11/03/23 12:00 11/03/23 12:00 11/03/23 12:00
I&O
11/02/23 11/03/23 11/04/23
06:59 06:59 06:59
Intake Total 2220 / 2220 4320 / 4320
Balance 2220 / 2220 4320 / 4320
Review of Systems
-
History Source: Patient
All other systems: Not reviewed unless documented
Physical Exam
-
General: No Apparent Distress
HEENT: Normocephalic
Respiratory: Clear to Auscultation
Cardiac: Regular Rhythm
Neuro: Awake, Alert, Oriented and AO x 3
Data Reviewed
-
CT Scan: Image personally visualized and interpreted and Report Reviewed by me
MRI: Report Reviewed by me
Labs: Labs Reviewed by me
[2023-11-03 14:00] LABS: Blood Urea Nitrogen < 2 mg/dl (7-17); Calcium 9.9 mg/dl (8.4-10.2); Carbon Dioxide 19 mmol/L (22-30); Chloride 109 mmol/L (98-107); Estimated Creatinine Clearance 107 ml/min; Glucose 92 mg/dl (70-99); Potassium 3.9 mmol/L (3.5-5.1); Sodium 142 mmol/L (135-145); eGFR > 60.00
[2023-11-03] MEDS: FERRLECIT 110 MG IV (14:45)
[2023-11-03 15:00] VITALS: BP 120/76
[2023-11-03 15:09] LABS: Erythrocyte Sed Rate 10 mm/hour (0-20)
[2023-11-03 19:04] VITALS: BP 108/65
[2023-11-03] MEDS: FEOSOL 325 MG PO (21:31)
[2023-11-03 23:08] VITALS: BP 106/75
[2023-11-04 03:18] VITALS: BP 100/61
[2023-11-04 07:00] VITALS: BP 105/69
[2023-11-04 08:26] LABS: Hematocrit 29.6 % (37.0-47.0); Hemoglobin 8.5 g/dL (12.0-16.0); Mean Corp Hgb Conc. 28.7 g/dL (33.0-37.0); Mean Corpuscular Hgb 18.5 pg (27.0-31.0); Mean Corpuscular Volume 64.3 fL (81.0-99.0); Mean Platelet Volume 10.1 fL (7.4-10.4); Platelet Count 527 10^3/uL (130-400); Red Cell Dist. Width 19.5 % (11.5-14.5); White Blood Cell Count 5.2 10^3/uL (4.8-10.8)
[2023-11-04] MEDS: CEFTIN 500 MG PO (08:44)
[2023-11-04] MEDS: LAMICTAL 25 MG PO (08:44)
[2023-11-04] MEDS: FLUSH (NSS) 1 FLUSH IV (08:44)
[2023-11-04 08:53] LABS: ALT (SGPT) < 10 U/L (0-35); AST (SGOT) 17 U/L (14-36); Albumin 4.2 g/dl (3.5-5.0); Alkaline Phosphatase 47 U/L (38-126); Blood Urea Nitrogen 5 mg/dl (7-17); Calcium 9.8 mg/dl (8.4-10.2); Carbon Dioxide 19 mmol/L (22-30); Chloride 104 mmol/L (98-107); Estimated Creatinine Clearance 107 ml/min; Glucose 75 mg/dl (70-99); Potassium 3.7 mmol/L (3.5-5.1); Sodium 142 mmol/L (135-145); Total Bilirubin 0.4 mg/dl (0.2-1.3); Total Protein 7.3 g/dl (6.3-8.2); eGFR > 60.00
--- NOTE | 2023-11-04 09:39 | PN.CDI ---
CDI
- -
CDI:
Physician Documentation Request
Admit Date: 10/31/23 22:16
Dear Doctor Je,
Please review the following and provide your response in the progress notes.
Clinical Indicators:
- 10/31 Sander Setter note indicates severe protein calorie malnutrition
- Unintentional weight loss >10% in 6 months
- Nutrient intake </=75% estimated energy needs, >/= 1 month
- 10/30 BMI 16.9
Based on the above information and your assessment, which of the following most accurately represents the patient's nutritional status?
Severe protein calorie malnutrition
Other
[place] Criteria ([facility] Hospitalist 2017)
2 or more criteria must be present for either
non severe or severe malnutrition
Note that the criteria differs related to the
presence of an acute or chronic illness
Acute Illness Chronic Illness
Energy Intake Non Severe: <75% for >7 days Non Severe: <75% for >1 month
Severe: <50% for >5 days Severe: <75% for >1 month
Weight Loss Non Severe: 1-2% over 1 week Non Severe: 5% over 1 month
5% over 1 month 7.5% over 3 months
7.5% over 3 months 10% over 6 months
1 year N/A 20% over 1 year
Severe: >2% over 1 week Severe: >5% over 1 month
>5% over 1 month >7.5% over 3 months
>7.5% over 3 months >10% over 6 months
1 year N/A >20% over 1 year
Body Fat Non Severe: Mild Decrease Non Severe: Mild Loss
Severe: Moderate Decrease Severe: Severe Loss
Muscle Mass Non Severe: Mild Decrease Non Severe: Mild Loss
Severe: Moderate Decrease Severe: Severe Loss
Fluid Accumulation Non Severe: Mild Accumulation Non Severe: Mild Accumulation
Severe: Moderate to severe Severe: Moderate to severe
accumulation accumulation
Reduced Building Associate Strength Non Severe: N/A Non Severe: N/A
Severe: Measurably reduced Severe: Measurably reduced
Additional criteria that can be used to Determine if Mild or Moderate Malnutrition (Merck Manual 2018)
Mild Moderate Severe
Albumin gm/dl <3.0 gm/dl <2.5 gm/dl <2.0 gm/dl
Pre Albumin mg/dl <15 gm/dl <10 mg/dl <5.0 mg/dl
BMI <18.5 <17 <16
Use of terms such as suspected, likely, concern for, or probable (associated with a specific diagnosis that is being evaluated, monitored, or treated as if it exists) are acceptable and can be coded in the inpatient setting, when documented at the
time of discharge.
Thank you,
Rachel Connolly RN
CDI Specialist
Please use your independent medical judgment in providing your response.
--- NOTE | 2023-11-04 09:43 | PN.CDI ---
CDI
- -
CDI:
Physician Documentation Request
Admit Date: 10/31/23 22:16
Dear Doctor Je,
Please review the following and provide your response in the progress notes.
Clinical Indicators:
The diagnosis of encephalopathy was documented on 10/30 ER Physician note but is not consistently noted in subsequent documentation.
- 10/30 ER Physician noted 'encephalopathy' for indication for lumbar puncture and diagnosis for admission
- 10/30 H&P 22 year old 'Patient found by her family sitting at home and very confused'
- 11/02 PN 'Episode of confusion, possible seizures'
Please clarify the likely/suspected etiology of confusion:
Metabolic encephalopathy
Confusion due to seizure
Confusion due to UTI
Other
Use of terms such as suspected, likely, concern for, or probable (associated with a specific diagnosis that is being evaluated, monitored, or treated as if it exists) are acceptable and can be coded in the inpatient setting, when documented at the
time of discharge.
Thank you,
Rachel Connolly RN
CDI Specialist
Please use your independent medical judgment in providing your response.
[2023-11-04 11:10] VITALS: BP 102/66
--- NOTE | 2023-11-04 12:15 | CM ---
CM met with Amanda at bedside. 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 She lives with her mother and brother in apartment with elevator access; no entry steps.
PCP: [facility]
Pharmacy: [facility]
PLAN: Discharge to home with no needs.
--- NOTE | 2023-11-04 12:33 | W.PN.HOSP.TC ---
Addendum entered and electronically signed by Tunde Wooten MD 11/05/23 17:49:
severe protein calorie malnutrition
Encephalopathy, unclear etiology - resolved;
Addendum entered and electronically signed by Tunde Wooten MD 11/04/23 15:53:
[id number]
Original Note:
Today's Communication/Plan
-
complete abx course
no driving until cleared by [employer] - will need f/u with outpatient neurology
Follow-up vasculitis workup outpatient
Follow-up CBC for hemoglobin and platelets outpatient PCP
Follow-up PCP, hematology, gynecology, neurology outpatient; will benefit from psychotherapist as well
Assessment / Plan
Assessment / Plan
22yo F with PMHx of anxiety, MANUEL 2/2 heavy periods brought to the hospital after her family found her tremulous, confused, but wide awake in her room. PAtient has no recollection of events. LP in ED with benign cell count and negative
meningitis/encephalitis panel. Patient started to slowly improve and back tpo baseline withing 24h. As per mother she has similar episode at the age of 15, that was contributed to be due to her anemia and possible anxiety
Also reported absent periods for 3 months and was found severely anemic with tachycardia
A/P:
#Episode of confusion, possible seizures
seizure precautions
� After discussion with father, family along with patient�it appears her stressors have exacerbated issues. Patient's father had described episodes of shaking when she is stressed, coherent, no loss of consciousness at that time. Patient has been
having to go back to school in [place] for the last 3 weeks, although delayed due to continued issues.
� After discussion with neurology, all data including EEG that was unremarkable, not convinced this is seizures.
� After confirmation from neurology, discontinue Lamictal
� Follow-up neurology outpatient
-LP neg for infection on PCR, Cx NTD
-MRI brain without abnormalities
-UDS neg, denied alcohol or illicit drugs
-Vasculitis work up as per neuro - f/u outpatient
#Sinus tachy - improving
up to 140, concerned for dehydration and anemia
follow on telemetry
correct underlying abnormality
-improving
-IVF PRN
#UTI
-Ecolli
-cont abx ceftin for 5 additional days
#Thrombocytosis
could be 2/2 hemoconcentration 2/2 dehydration v acute phase reactant in setting of severe anemia
-f/u cbc outpatient
#MANUEL
2/2 heavy periods. As per family - patient was not taking her iron pills
Follow Hgb, transfuse to keep >7.0
Outpatient hematology advised
IV iron
-HgB electrophoresis - f/u outpatient
-f/u cbc outpatient
#Amenorrhea
Concerned that could be 2/2 poor oral intake as patient BMI 16.9 v anemia
bHCG neg
Outpatient HOME HEALTH CARE CASE MANAGER advised
Avise to increase oral intake
TSH WNL
DVT ppx SCDs
Full code
More than 30 minutes spent in discharge including
Final examination of the patient
Summarizing hospital stay
Instructions for continuing care to all relevant caregivers
Preparation of discharge records, prescriptions, and referral forms
Total time spent (35 in minutes):
Anticipated Discharge: Today
Subjective/Interval History
-
Date of Service: November 04, 2023
No acute events overnight, EEG unremarkable
Objective Data
-
Labs:
Laboratory Results
11/04/23
07:24
WBC 5.2
Hgb 8.5 L
Hct 29.6 L
Plt Count 527 H D
Sodium 142
Potassium 3.7
Chloride 104
Carbon Dioxide 19 L
BUN 5 L
Creatinine 0.6
Glucose 75
Calcium 9.8
Total Bilirubin 0.4
AST 17
ALT < 10
Alkaline Phosphatase 47
Vital Signs:
Vital Signs
Temp Pulse Resp BP Pulse Ox
98.1 F 106 16 102/66 100
11/04/23 11:10 11/04/23 11:10 11/04/23 11:10 11/04/23 11:10 11/04/23 11:10
I&O
11/03/23 11/04/23 11/05/23
06:59 06:59 06:59
Intake Total 4320 / 4320 28453 / 45506
Balance 4320 / 4320 87294 / [id number]
Review of Systems
-
History Source: Patient
All other systems: Not reviewed unless documented
Data Reviewed
-
CT Scan: Image personally visualized and interpreted and Report Reviewed by me
MRI: Report Reviewed by me
Labs: Labs Reviewed by me
--- NOTE | 2023-11-04 12:39 | W.DS.TRANS ---
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
-
Discharge Instructions:
Discharge Diagnosis/Procedures #Episode of confusion, possible seizures
Activity As tolerated
Additional Activity no driving until cleared by [employer]
Blood Work hgb in 5-7 days
Instructions:
Stand-Alone Forms:
Changes to Home Medications: Yes
Discharge Medications:
DC Medications w/original date entered in [facility]
therapeutic multivitamin 1 tab PO DAILY Supplement 10/31/23
cefuroxime axetil 500 mg tablet 500 mg PO BID 5 days #10 tabs 11/04/23
ferrous sulfate 325 mg (65 mg iron) tablet (FeroSul) 325 mg PO HS 30 days #30 tabs 11/04/23
Home Medication Changes
cefuroxime axetil 500 mg tablet 500 mg PO BID 5 days #10 tabs 11/04/23
ferrous sulfate 325 mg (65 mg iron) tablet (FeroSul) 325 mg PO HS 30 days #30 tabs 11/04/23
Pending Results: No
[2023-11-04] MEDS: FERRLECIT 110 MG IV (13:09)
[2023-11-04] MEDS: FLUSH (NSS) 2 FLUSH IV (13:10)
[2023-11-04 14:19] VITALS: BP 109/68
[2023-11-05 01:00] LABS: ANA, IgG Reflex to HEp-2 None Detected (None Detected)
[2023-11-06 00:26] LABS: Myeloperoxidase Antibody 0 AU/mL (0-19); Serine Protease-3, IgG 15 AU/mL (0-19)
[2023-11-06 16:30] LABS: Capillary Hgb Electrophoresis Not Performed; Sickle Cell Solubility Reflex Not Performed
== END 2023-11-04 15:35 | disposition home or self-care (01) | DRG 101 ==
LOC: 4 EAST ACU 22:16
PROVIDERS: Internal Medicine; Physician Assistant Medical; ADMITTING PHYSICIAN Hospitalist; ATTENDING PHYSICIAN Internal Medicine; CONSULT PHYSICIAN Psychiatry & Neurology Neurology; EMERGENCY PHYSICIAN Emergency Medicine; FAMILY PHYSICIAN Pediatrics
PROC: 009U3ZX Drainage of Spinal Canal, Percutaneous Approach, Diagnostic (ICD-10-PCS; 2023-10-31)
DX: R56.9 Unspecified convulsions (principal); E87.20 Acidosis, unspecified; G93.40 Encephalopathy, unspecified; N39.0 Urinary tract infection, site not specified; D50.9 Iron deficiency anemia, unspecified; F41.9 Anxiety disorder, unspecified; N92.0 Excessive and frequent menstruation with regular cycle; R00.0 Tachycardia, unspecified; D75.839 Thrombocytosis, unspecified; N91.2 Amenorrhea, unspecified; B96.20 Unspecified Escherichia coli [E. coli] as the cause of diseases classified elsewhere; Z91.199 Patient's noncompliance with other medical treatment and regimen due to unspecified reason; Z88.8 Allergy status to other drugs, medicaments and biological substances; Z68.51 Body mass index [BMI] pediatric, less than 5th percentile for age
CPT/HCPCS: 62270; 70450; 70553; 80048; 80053; 80143; 80179; 80306; 80320; 81003; 81015; 82077; 82550; 82607; 82693; 82728; 82746; 82805; 82945; 83021; 83516; 83540; 83550; 83605; 83690; 83735; 84157; 84443; 84703; 85025; 85027; 85652; 86038; 86140; 87015; 87070; 87077; 87086; 87186; 87205; 87483; 87811; 89051; 93005; 95813; 96361; 96374; 99285; A9575; J2916